=== PATIENT | male | born 1985 | race Caucasian/White ===

== ENCOUNTER 2016-11-04 22:04 | Emergency (ER) | payer OTHER ==
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
[2016-11-04] MEDS ORDERED: Ondansetron 4 MG/2 ML SDV IVPUSH STA (22:17)
[2016-11-04] MEDS ORDERED: HYDROmorphone 2 MG/ML Syringe ONE (22:18)
[2016-11-04] MEDS ORDERED: HYDROmorphone 2 MG/ML Syringe IVPUSH ONE (22:30)
[2016-11-04 22:58] LABS: CHLORIDE,CL 110 mmol/L (98-110); SODIUM,NA 140 mmol/L (136-146)
[2016-11-04] MEDS ORDERED: NS + KCl 20mEq/L 1,000 ML IV SCH (23:30)
[2016-11-04] MEDS ORDERED: HYDROmorphone 1 MG/ML Syringe IVPUSH ONE (23:52)
[2016-11-05] MEDS: Ondansetron 4 MG/2 ML SDV ONE ×2 (00:27→06:49)
[2016-11-05] MEDS ORDERED: Morphine 2 MG/ML Syringe IVPUSH ONE (03:35)
[2016-11-05 08:03] VITALS: BP 137/84
--- NOTE | 2016-11-05 17:35 | CR ---
EXAM DATE: 11/04/16 PATIENT'S AGE: 31 Patient: HARSH MAN Facility: [place], [place] Site . Site : 1985 Study: XRay Chest [id number]/2/2017 10:37:27 PM Ordering Physician: Doctor Torres Final Report: INDICATION: trauma TECHNIQUE: Chest 1 view. The lung bases were not entirely included in the field of view COMPARISON: None FINDINGS: Cardiovascular and mediastinum: Heart size and vasculature are normal in caliber and appearance. Mediastinum is within normal limits. Lungs and pleural space: No focal consolidation. No sign of pleural effusion. No pneumothorax. Bones and soft tissues: No significant findings. IMPRESSION: No acute cardiopulmonary disease of the imaged lungs. Dictated by Juan Miguel Holt MD @ 11/04/2016 11:11:46 PM Dictated by: Juan Miguel Holt MD @ 11/04/2016 23:11:54 (Electronic Signature) Report [facility] Proxy. [facility]
--- NOTE | 2016-11-05 17:37 | CR ---
EXAM DATE: 11/04/16 PATIENT'S AGE: 31 Patient: HARSH MAN Facility: [place], [place] Site . Site : 1985 Study: XRay Extremity Right ankle [id number]/2/2017 10:45:51 PM Ordering Physician: Moy Villegas Final Report: INDICATION: trauma TECHNIQUE: Two views of the right ankle COMPARISON: None FINDINGS/IMPRESSION: Comminuted intra-articular impacted distal radial metaphyseal fracture. Impacted mildly displaced comminuted fracture of the distal fibular metaphysis. There is disruption of the ankle mortise. . Dictated by Juan Miguel Holt MD @ 11/04/2016 11:13:40 PM Dictated by: Juan Miguel Holt MD @ 11/04/2016 23:14:23 (Electronic Signature) Report Signed by Proxy. [facility]
--- NOTE | 2016-11-05 17:40 | CR ---
EXAM DATE: 11/04/16 PATIENT'S AGE: 31 Patient: HARSH MAN Facility: [place], [place] Site . Site : 1985 Study: XRay Extremity Left ankle [id number]/2/2017 10:46:30 PM Ordering Physician: Moy Villegas Final Report: INDICATION: trauma TECHNIQUE: Two views of the left ankle COMPARISON: None FINDINGS/IMPRESSION: Comminuted intra-articular impacted distal radial metaphyseal fracture. Impacted mildly displaced comminuted fracture of the distal fibular metaphysis. There is disruption of the ankle mortise. Dictated by Juan Miguel Holt MD @ 11/04/2016 11:15:31 PM Dictated by: Juan Miguel Holt MD @ 11/04/2016 23:15:41 (Electronic Signature) Report Signed by Proxy. [facility]
--- NOTE | 2016-11-05 17:42 | CR ---
EXAM DATE: 11/04/16 PATIENT'S AGE: 31 Patient: HARSH MAN Facility: [place], [place] Site . Site : 1985 Study: XRay Extremity Right foot [id number]/2/2017 11:18:28 PM Ordering Physician: Moy Villegas Final Report: TECHNIQUE: Four views of the right foot. INDICATION: Trauma. FINDINGS: No right foot fracture or dislocation. There is a comminuted fracture of the distal right tibia and probably the fibula as well. Remainder negative. Dictated by Jairo Pagan MD @ 11/04/2016 11:56:49 PM Dictated by: Jairo Pagan MD @ 11/04/2016 23:56:56 (Electronic Signature) Report Signed by Proxy. [facility]
--- NOTE | 2016-11-05 17:43 | CR ---
EXAM DATE: 11/04/16 PATIENT'S AGE: 31 Patient: HARSH MAN Facility: [place], [place] Site . Site : 1985 Study: XRay Pelvis [id number]/2/2017 11:18:52 PM Ordering Physician: Moy Villegas Final Report: Technique: Portable AP pelvis. INDICATIONS: Trauma. Findings: No pelvic or hip fracture identified. Bilateral vasectomy clips. Dictated by Jairo Pagan MD @ Nov 04 2016 11:56PM (Electronic Signature) Report Signed by Proxy. [facility]
--- NOTE | 2016-11-05 17:44 | CR ---
EXAM DATE: 11/04/16 PATIENT'S AGE: 31 Patient: HARSH MAN Facility: [place], [place] Site . Site : 1985 Study: XRay Extremity Left foot [id number]/2/2017 11:21:36 PM Ordering Physician: Moy Villegas Final Report: TECHNIQUE: Two views of the left foot. INDICATION: Trauma. FINDINGS: No left foot fracture. Comminuted fracture of the distal left tibia. Otherwise negative. Dictated by Jairo Pagan MD @ 11/05/2016 12:00:46 AM Dictated by: Jairo Pagan MD @ 11/05/2016 00:00:49 (Electronic Signature) Report Signed by Proxy. [facility]
--- NOTE | 2016-11-05 17:45 | CR ---
EXAM DATE: 11/04/16 PATIENT'S AGE: 31 Patient: HARSH MAN Facility: [place], [place] Site . Site : 1985 Study: XRay Knee Left [id number]/2/2017 11:23:46 PM Ordering Physician: Moy Villegas Final Report: TECHNIQUE: Two views of the left knee. INDICATION: Trauma. FINDINGS: No left knee fracture, dislocation or effusion. Normal left knee. Dictated by Jairo Pagan MD @ 11/05/2016 12:04:21 AM Dictated by: Jairo Pagan MD @ 11/05/2016 00:04:24 (Electronic Signature) Report Signed by Proxy. [facility]
--- NOTE | 2016-11-05 17:45 | CR ---
EXAM DATE: 11/04/16 PATIENT'S AGE: 31 Patient: HARSH MAN Facility: [place], [place] Site . Site : 1985 Study: XRay Knee Right [id number]/2/2017 11:22:01 PM Ordering Physician: Moy Villegas Final Report: Technique: Two views of the right knee. Indication: Trauma. Findings: No right knee fracture, dislocation, or effusion. Normal right knee. Dictated by Jairo Pagan MD @ Nov 05 2016 12:02AM (Electronic Signature) Report Signed by Proxy. [facility]
== END 2016-11-05 00:30 | disposition other institution (70) ==
LOC: MW.ED 22:04
DX: S82.451A Displaced comminuted fracture of shaft of right fibula, initial encounter for closed fracture (principal); S52.571A Other intraarticular fracture of lower end of right radius, initial encounter for closed fracture; S82.51XA Displaced fracture of medial malleolus of right tibia, initial encounter for closed fracture; S82.61XA Displaced fracture of lateral malleolus of right fibula, initial encounter for closed fracture
CPT/HCPCS: 36415; 71010; 72170; 73560; 73600; 73620; 80053; 85025; 93005; 96374; 96375; 99285; J1170; J2270; J2405; 99283